=== PATIENT | female | born 1955 | race Two or more races ===

== ENCOUNTER → 2017-09-11 | Day surgery (SDC) | payer OTHER ==
[~2017-09-11] MED LIST: FENTAnyl 50 MCG/ML VIAL; HEPARIN 1000 UNITS/ML 10 ML INJ; IODIXANOL LOCM 100 ML BTL; LIDOCAINE 1% (MDV) 20 ML INJ; MIDAZOLAM 1 MG/ML 2 ML INJ; NITROGLYCERIN (IC) 100 MCG/ML INJ; VERAPAMIL 5 MG INJ
== END | disposition home or self-care (01) ==
LOC: CCL 11:40
DX: I20.0 Unstable angina (principal)
CPT/HCPCS: 93458